=== PATIENT | female | born 1950 | race Caucasian/White ===

== ENCOUNTER → 2016-07-25 | Outpatient (CLI) | payer MEDICARE ==
--- NOTE | 2016-07-29 07:07 | MM ---
Reason for exam: screening (asymptomatic). Last mammogram was performed 1 year and 1 month ago. History: Patient is postmenopausal. Family history of breast cancer in sister at age 50. Benign US biopsy breast VAD LT of the left breast, March 10, 2014. Benign US breast needle core LT of the left breast, August 31, 2013. Benign left mammotome panel of the left breast, February 09, 2013. Took estrogen for 10 years. Physical Findings: A clinical breast exam by your physician is recommended on an annual basis and results should be correlated with mammographic findings. MG 3D Screening Mammo W/Cad Bilateral CC and MLO view(s) were taken. Prior study comparison: July 09, 2015, bilateral MG 3d screening mammo w/cad. September 11, 2014, left breast US breast LT. March 01, 2014, bilateral MG diagnostic mammo w CAD KAREN. November 11, 2011, mammogram, performed at [facility]. There are scattered fibroglandular densities. Previous mammotome biopsy within the right breast x two with associated focal asymmetry. Stable grouped calcifications medial posterior right breast. Focal asymmetry 1 o'clock in the left breast at a middle depth appears more defined. It incompletely disperses on tomosynthesis images. ASSESSMENT: Incomplete: need additional imaging evaluation, BI-RAD 0 RECOMMENDATION: Special view mammogram of the left breast. If lesion persists on supplemental views, image directed ultrasound is recommended. [facility] will attempt to contact patient to return for supplemental views and ultrasound if indicated. [facility]Andrew
== END | disposition home or self-care (01) ==
LOC: RADMAMWWP 10:08
PROVIDERS: ATTEND Surgery
DX: Z12.31 Encounter for screening mammogram for malignant neoplasm of breast (principal); R92.2 Inconclusive mammogram
CPT/HCPCS: 77063; G0202

== ENCOUNTER → 2016-08-06 | Outpatient (CLI) | payer MEDICARE ==
--- NOTE | 2016-08-06 11:32 | MM ---
Reason for exam: additional evaluation requested from abnormal screening. Last mammogram was performed less than 1 month ago. History: Patient is postmenopausal. Family history of breast cancer in sister at age 50. Benign US biopsy breast VAD LT of the left breast, March 10, 2014. Benign US breast needle core LT of the left breast, August 31, 2013. Benign left mammotome panel of the left breast, February 09, 2013. Took estrogen for 10 years. Physical Findings: Nurse Summary: 1cm nodule in the left breast at 10 o'clock (nurse mm). MG 3D Work Up W/Cad LT ML, spot compression CC, and spot compression MLO view(s) were taken of the left breast. Prior study comparison: July 25, 2016, bilateral MG 3d screening mammo w/cad. July 09, 2015, bilateral MG 3d screening mammo w/cad. The breast tissue is heterogeneously dense. This may lower the sensitivity of mammography. Finding #1: There is a 5 mm mass in the outer quadrant of the left breast. Finding #2: There are typically benign calcifications in the left breast. These results were verbally communicated with the patient and result sheet given to the patient on 08/06/16. ASSESSMENT: Incomplete: need additional imaging evaluation, BI-RAD 0 RECOMMENDATION: Ultrasound of the left breast.
--- NOTE | 2016-08-06 11:33 | USB ---
Reason for exam: additional evaluation requested from abnormal screening. History: Patient is postmenopausal. Family history of breast cancer in sister at age 50. Benign US biopsy breast VAD LT of the left breast, March 10, 2014. Benign US breast needle core LT of the left breast, August 31, 2013. Benign left mammotome panel of the left breast, February 09, 2013. Took estrogen for 10 years. Physical Findings: Nurse did not find any significant physical abnormalities on exam. US Breast Workup Limited LT Left breast ultrasound demonstrates a 0.5 x 0.4 x 0.4cm hypoechoic lesion at 4 o'clock and a 0.4 x 0.3 x 0.4cm hypoechoic lesion at 4 o'clock. Multiple nodes noted in axilla. These results were verbally communicated with the patient and result sheet given to the patient on 08/06/16. ASSESSMENT: Suspicious, BI-RAD 4 RECOMMENDATION: Ultrasound core biopsy of the left breast. Called with mammographic findings and has scheduled an appointment for the patient for 08/12/16 at 9:[address] Delaney. PRELIMINARY REPORT CALLED AND FAXED TO DR. DELANEY ON 08/06/16 AT 300/TMP.
== END | disposition home or self-care (01) ==
LOC: RADMAMWWP 08:57
PROVIDERS: ATTEND Surgery
DX: R92.8 Other abnormal and inconclusive findings on diagnostic imaging of breast (principal)
CPT/HCPCS: 76642; G0206; G0279

== ENCOUNTER → 2016-08-18 | Day surgery (SDC) | payer MEDICARE ==
[~2016-08-18] MED LIST: ALPRAZolam 0.25 MG TAB ONE; BACITRACIN OINT 1 EACH PACKET TOPICAL ONE; LIDOCAINE 1% INJ 10MG/ML (20 ML MDV) ONE
--- NOTE | 2016-08-18 08:33 | USB ---
EXAMINATION TYPE: US breast aspiration single LT, MG diagnostic mammo LT wo CAD , US biopsy breast VAD LT DATE OF EXAM: 08/18/2016 CLINICAL HISTORY: R92.8 abn mamm. TECHNIQUE: Ultrasound guided fine-needle aspiration and core biopsy of left breast with clip placement and follow-up two-view mammogram. COMPARISON: Diagnostic left breast mammogram and ultrasound workup August 06, 2016 and older studies. FINDINGS: The procedure of ultrasound guided fine-needle aspiration and/or core biopsy was explained to the patient. Benefits, alternatives, and risks were discussed. An informed consent was then obtained. The patient was placed in supine positioning for imaging and for the procedure. Preprocedure imaging redemonstrates 2 well-defined 3 to 4 mm hypoechoic anechoic lesions 4:00 position zone B see in the left breast which are believed to correlate to area of concern on prior ultrasound. The overlying skin was prepped and draped in usual sterile fashion. Lidocaine buffered with bicarbonate was used as anesthetic into the skin and subcutaneous tissue up to area of concern in the left breast. Under ultrasound guidance, one lesion is successfully aspirated with less than 1 cc of yellow-colored fluid utilizing 20- gauge spinal needle. Fluid is discarded due to limited volume and benign gross appearance. Second lesion is unsuccessful in aspiration. Under ultrasound guidance, a 12-gauge vacuum assisted biopsy gun device was used to obtain 2 core samples. Following this, a biopsy clip was left in lesion. The patient tolerated the procedure well without any immediate complication. The patient was kept in the radiology department for short stay after the procedure and then discharged home in stable condition. Postprocedure mammogram shows successful deployment of new clip inferior outer quadrant correlating with 4:00 position on ultrasound. IMPRESSION: Successful, uncomplicated ultrasound guided core biopsy of area of concern in the left breast, full pathology results to follow. Low index of suspicion noted at time of procedure. Pathology Results: Benign BREAST, LEFT, CORE BIOPSY: BENIGN FIBROADIPOSE TISSUE WITH FAT NECROSIS, CHRONIC INFLAMMATION AND FIBROSIS. BREAST ELEMENTS ARE NOT IDENTIFIED. Recommendation Follow up ultrasound of the left breast in 6 months. MTDD
== END ==
LOC: RADUSWWP 06:58
PROVIDERS: ATTEND Surgery
DX: N60.32 Fibrosclerosis of left breast (principal); N64.1 Fat necrosis of breast; R92.8 Other abnormal and inconclusive findings on diagnostic imaging of breast
CPT/HCPCS: 88305; 76942; 19000; 19083; G0206; J2001

== ENCOUNTER → 2017-08-31 | Outpatient (CLI) | payer MEDICARE ==
--- NOTE | 2017-08-31 14:56 | MM ---
Reason for exam: screening (asymptomatic). Last mammogram was performed 1 year ago. History: Patient is postmenopausal and history of other cancer. Family history of breast cancer in sister at age 50. US breast aspiration single LT of the left breast, August 18, 2016. Benign US biopsy breast VAD LT of the left breast, August 18, 2016. Benign US biopsy breast VAD LT of the left breast, March 10, 2014. Benign US breast needle core LT of the left breast, August 31, 2013. Benign left mammotome panel of the left breast, February 09, 2013. Took estrogen for 10 years. Physical Findings: A clinical breast exam by your physician is recommended on an annual basis and results should be correlated with mammographic findings. MG 3D Screening Mammo W/Cad Bilateral CC and MLO view(s) were taken. Prior study comparison: August 18, 2016, left breast MG diagnostic mammo LT wo CAD. August 06, 2016, left breast MG 3d work up w/cad LT. The breast tissue is heterogeneously dense. This may lower the sensitivity of mammography. Finding #1: Stable architectural distortion in the left breast. Finding #2: There are typically benign dystrophic, round, grouped/clustered and scattered calcifications in both breasts. Previous mammotome biopsy in the left breast x 3. There is no discrete abnormality. ASSESSMENT: Benign, BI-RAD 2 RECOMMENDATION: Routine screening mammogram of both breasts in 1 year.
== END | disposition home or self-care (01) ==
LOC: RADMAMWWP 11:05
PROVIDERS: ATTEND Family Medicine
DX: Z12.31 Encounter for screening mammogram for malignant neoplasm of breast (principal)
CPT/HCPCS: 77063; 77067

== ENCOUNTER → 2018-01-15 | Outpatient (CLI) | payer MEDICARE ==
--- NOTE | 2018-01-15 18:50 | CT ---
EXAMINATION TYPE: CT abdomen pelvis wo/w con DATE OF EXAM: 01/15/2018 HISTORY: Multiple UTI's. Pelvic pain. CT DLP: 1933.7mGycm Automated Exposure Control for Dose Reduction was Utilized. CONTRAST: CT scan of the abdomen and pelvis is performed without and with IV Contrast, patient injected with 10 0 mL of Isovue 300. COMPARISON: CTA chest dated 12/10/2012 FINDINGS: LUNG BASES: The left lung base there is a 1.4 cm pulmonary nodule. This is very similar in comparison to the exam of 12/10/2012 where this measured 1.2 cm. There is question to be internal macroscopic fa t and this could relate to a trauma as there are smooth and lobular borders. Bibasilar subsegmental a telectasis is noted. LIVER/GB: Hepatic parenchyma is diffusely hypoattenuated in comparison to that of the spleen, most co mmonly seen in hepatic steatosis. This finding limits evaluation for hepatic masses. No gross evidenc e of hepatic mass is seen. No intrahepatic biliary ductal dilatation. Gallbladder surgically absent. PANCREAS: No significant abnormality is seen. SPLEEN: No significant abnormality is seen. ADRENALS: No significant abnormality is seen. KIDNEYS: On the noncontrast images there is there are bilateral renal calculi. On the left there are 2 3 mm nonobstructing upper pole renal calculi and on the right there is one mid pole 3 mm nonobstruc ting calculus. On the nephrographic phase on image 37 in both kidneys there are 4 mm hypoattenuated lesions that are too small to accurately characterize. No suspicious renal mass is seen of either kidney. There is no evidence of hydronephrosis of either k idney. No uroepithelial thickening is seen. Automated no proximal ureteral stricture is identified. U rinary bladder is not opacified and incompletely evaluated, however there is a calculus within the an terior superior urinary bladder appearing to be within the wall or lying dependently against the wall . BOWEL: Multiple colonic diverticula some containing inspissated contrast and/or debris. No pericoloni c fat stranding is noted. Contrast is seen retained within the distal esophagus that could relate to gastroesophageal reflux or decreased propulsion of contrast. The cecum demonstrates slight wall thick ening on series 6 image 66. Moderate amount retained colonic stool is noted, slightly limiting evalua tion of the bowel. No dilated large or small bowel is seen duodenal diverticulum is incidentally note d near the head of the pancreas. This contains contrast. UTERUS/ADNEXA: Uterus appears surgically absent. LYMPH NODES: No greater than 1cm abdominal or pelvic lymph nodes are appreciated. OSSEOUS STRUCTURES: Minimal multilevel degenerative changes of the spine are seen OTHER: Abdominal aorta is of normal course and caliber with mild atherosclerosis. IMPRESSION: 1. Bilateral renal calculi without evidence of obstructive uropathy. 2. Punctate solitary urinary bladder calculus intimately associated with the urinary bladder wall leroy t may be sequela of repeated infections or may represent a recently passed renal calculus. 3. No evidence of suspicious renal mass or uroepithelial thickening. Too small to accurately characte rize bilateral renal lesions are of low suspicion. 4. Colonic diverticulosis without evidence of acute diverticulitis. 5. 1.4 cm left lower lobe pulmonary nodule suspected to represent a benign hamartoma demonstrating on ly 2 mm of interval growth since 2013, therefore highly likely benign.
== END | disposition home or self-care (01) ==
LOC: RADCTMAIN 13:52
PROVIDERS: ATTEND Urology
DX: N20.0 Calculus of kidney (principal); N21.0 Calculus in bladder; K57.30 Diverticulosis of large intestine without perforation or abscess without bleeding
CPT/HCPCS: 74178; Q9967

== ENCOUNTER → 2018-09-06 | Outpatient (CLI) | payer MEDICARE ==
--- NOTE | 2018-09-07 10:58 | MM ---
Reason for exam: screening (asymptomatic). Last mammogram was performed 1 year ago. History: Patient is postmenopausal and history of other cancer. Family history of breast cancer in sister at age 50. US breast aspiration single LT of the left breast, August 18, 2016. Benign US biopsy breast VAD LT of the left breast, August 18, 2016. Benign US biopsy breast VAD LT of the left breast, March 10, 2014. Benign US breast needle core LT of the left breast, August 31, 2013. Benign left mammotome panel of the left breast, February 09, 2013. Took estrogen for 10 years. Physical Findings: A clinical breast exam by your physician is recommended on an annual basis and results should be correlated with mammographic findings. MG 3D Screening Mammo W/Cad Bilateral CC and MLO view(s) were taken. Prior study comparison: August 31, 2017, bilateral MG 3d screening mammo w/cad. August 18, 2016, left breast MG diagnostic mammo LT wo CAD. The breast tissue is heterogeneously dense. This may lower the sensitivity of mammography. Stable scattered calcifications. No significant changes when compared with prior studies. ASSESSMENT: Benign, BI-RAD 2 RECOMMENDATION: Routine screening mammogram of both breasts in 1 year.
== END | disposition home or self-care (01) ==
LOC: RADMAMWWP 11:41
PROVIDERS: ATTEND Family Medicine
DX: Z12.31 Encounter for screening mammogram for malignant neoplasm of breast (principal)
CPT/HCPCS: 77063; 77067

== ENCOUNTER → 2019-07-01 | Outpatient (CLI) | payer MEDICARE ==
--- NOTE | 2019-07-04 10:05 | PE ---
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 TECHNIQUE: Following the intravenous administration of 10.20 mCi of F-18 FDG, whole body images are performed from the top of skull to the bottom of the feet. Images are reviewed on the computer in th e coronal, axial, and sagittal planes. Reconstructed rotating images are created on independent work station and reviewed on the computer. A noncontrast CT is performed in conjunction with the PET sca n. SCAN: Initial Scan FINDINGS: HEAD AND NECK: No areas of suspicious hypermetabolic uptake including scalp lesions or adenopathy. CHEST, MEDIASTINUM, AND HILAR REGION: No areas of suspicious hypermetabolic uptake. ABDOMEN AND PELVIS: No areas of suspicious hypermetabolic uptake. OSSEOUS STRUCTURES: No areas of suspicious hypermetabolic uptake. EXTREMITIES: No areas of suspicious hypermetabolic uptake. Other: Surgical changes medially left breast axial image 107 are present. Moderate coronary artery calcification is redemonstrated noted marker for coronary artery disease. St able 1.4 cm left basilar pulmonary nodule axial image 131 which is ametabolic noted not significantly changed from 2013 CT presumed benign. Liver remains low dense consistent with diffuse fatty infiltration. Cholecystectomy clips are again s een. Diverticula in the left and sigmoid colon. Uterus is surgically absent or markedly atrophic. A f ew scattered pelvic phleboliths. Calcifications lower bladder redemonstrated. Small bilateral renal c alculi redemonstrated. Metallic hardware from total right knee arthroplasty. IMPRESSION: No new suspicious hypermetabolic masses to suggest metastatic melanoma recurrence.
== END | disposition home or self-care (01) ==
LOC: RADPETMAIN 10:53
PROVIDERS: ATTEND Internal Medicine
DX: C43.39 Malignant melanoma of other parts of face (principal)
CPT/HCPCS: 78816; A9552

== ENCOUNTER → 2019-09-26 | Outpatient (CLI) | payer MEDICARE ==
--- NOTE | 2019-09-28 08:46 | MM ---
Reason for exam: screening (asymptomatic). Last mammogram was performed 1 year and 1 month ago. History: Patient is postmenopausal and has history of other cancer at age 67. Family history of breast cancer in sister at age 50. US breast aspiration single LT of the left breast, August 18, 2016. Benign US biopsy breast VAD LT of the left breast, August 18, 2016. Benign US biopsy breast VAD LT of the left breast, March 10, 2014. Benign US breast needle core LT of the left breast, August 31, 2013. Benign left mammotome panel of the left breast, February 09, 2013. Took estrogen for 10 years. Physical Findings: A clinical breast exam by your physician is recommended on an annual basis and results should be correlated with mammographic findings. MG 3D Screening Mammo W/Cad Bilateral CC and MLO view(s) were taken. Prior study comparison: September 06, 2018, bilateral MG 3d screening mammo w/cad. August 31, 2017, bilateral MG 3d screening mammo w/cad. The breast tissue is heterogeneously dense. This may lower the sensitivity of mammography. Asymmetric breast tissue in the right upper outer quadrant 6cm from nipple. This finding is changed when compared with previous exams. ASSESSMENT: Incomplete: need additional imaging evaluation, BI-RAD 0 RECOMMENDATION: Ultrasound of the right breast. [facility] will attempt to contact patient to return for ultrasound.
== END | disposition home or self-care (01) ==
LOC: RADMAMWWP 15:10
PROVIDERS: ATTEND Family Medicine
DX: Z12.31 Encounter for screening mammogram for malignant neoplasm of breast (principal)
CPT/HCPCS: 77063; 77067

== ENCOUNTER → 2019-11-25 | Outpatient (CLI) | payer MEDICARE ==
--- NOTE | 2019-11-28 07:28 | PE ---
EXAMINATION TYPE: PET CT fusion whole body DATE OF EXAM: 11/25/2019 COMPARISON: Whole body PET/CT July 01, 2019 and older CTs. HISTORY: Malignant melanoma progress study. Originally diagnosed July 28, 2017 in the forehead with recurrence same location March 14, 2019. TECHNIQUE: Following the intravenous administration of 11.635 mCi of F-18 FDG, whole body images are performed from the top of skull to the bottom of feet. Images are reviewed on the computer in the c oronal, axial, and sagittal planes. Reconstructed rotating images are created on independent worksta tion and reviewed on the computer. A noncontrast CT is performed in conjunction with the PET scan. SCAN: Subsequent Scan FINDINGS: HEAD AND NECK: No new areas of suspicious hypermetabolic uptake in particular no suspicious hypermet abolic soft tissue scalp lesions. CHEST, MEDIASTINUM, AND HILAR REGION: No new areas of suspicious hypermetabolic uptake. ABDOMEN AND PELVIS: Normal excretion redemonstrated. More prominent mild/moderate diffuse bowel uptak e on current study is nonspecific. No areas of abnormal new suspicious hypermetabolic uptake on curre nt study. OSSEOUS STRUCTURES: No new areas of suspicious hypermetabolic uptake. EXTREMITIES: No new areas of suspicious hypermetabolic uptake. OTHER CT: Surgical changes medially left breast axial image 110 are redemonstrated. Mild to moderate coronary artery calcification is redemonstrated which is noted marker for coronary a rtery disease. Stable 1.4 cm left basilar pulmonary nodule axial image 131 which remains ametabolic n oted not significantly changed from 2013 CT presumed benign. Liver remains low dense consistent with diffuse fatty infiltration. Cholecystectomy clips are again s een. Diverticula in the left and sigmoid colon. Uterus is surgically absent or markedly atrophic. A f ew scattered pelvic phleboliths. Calcifications inferior bladder redemonstrated. Small bilateral taylor l calculi redemonstrated. Metallic hardware from total right knee arthroplasty again seen. IMPRESSION: No new areas of suspicious hypermetabolic soft tissue masses to suggest residual or metas tatic melanoma.
== END | disposition home or self-care (01) ==
LOC: RADPETMAIN 08:15
PROVIDERS: ATTEND Internal Medicine
DX: C43.39 Malignant melanoma of other parts of face (principal); C77.0 Secondary and unspecified malignant neoplasm of lymph nodes of head, face and neck
CPT/HCPCS: 78816; A9552

== ENCOUNTER → 2020-05-28 | Outpatient (CLI) | payer MEDICARE ==
--- NOTE | 2020-05-29 07:54 | MM ---
Reason for exam: follow-up at short interval from prior study. Last mammogram was performed 8 months ago. History: Patient is postmenopausal and has history of other cancer at age 67. Family history of breast cancer in sister at age 50. US breast aspiration single LT of the left breast, August 18, 2016. Benign US biopsy breast VAD LT of the left breast, August 18, 2016. Benign US biopsy breast VAD LT of the left breast, March 10, 2014. Benign US breast needle core LT of the left breast, August 31, 2013. Benign left mammotome panel of the left breast, February 09, 2013. Took estrogen for 10 years. Physical Findings: Nurse did not find any significant physical abnormalities on exam. MG 3D Diag Mammo W/Cad RT CC and MLO view(s) were taken of the right breast. Prior study comparison: September 26, 2019, bilateral MG 3d screening mammo w/cad. September 06, 2018, bilateral MG 3d screening mammo w/cad. The breast tissue is heterogeneously dense. This may lower the sensitivity of mammography. Upper outer quadrant focal asymmetry stable to less defined. An additional short follow up can be performed. These results were verbally communicated with the patient and result sheet given to the patient on 05/28/20. ASSESSMENT: Probably benign, BI-RAD 3 RECOMMENDATION: Follow-up diagnostic mammogram of both breasts in 4 months. Back on schedule for September 2020.
== END ==
LOC: RADMAMWWP 14:04
PROVIDERS: ATTEND Family Medicine
DX: N64.89 Other specified disorders of breast (principal); R92.2 Inconclusive mammogram; Z80.3 Family history of malignant neoplasm of breast; Z78.0 Asymptomatic menopausal state
CPT/HCPCS: 77065; G0279; 77061

== ENCOUNTER → 2020-07-06 | Outpatient (CLI) | payer MEDICARE ==
--- NOTE | 2020-07-09 08:32 | PE ---
EXAMINATION TYPE: PET CT fusion skull to thigh DATE OF EXAM: 07/06/2020 COMPARISON: Prior PET/CT November 25, 2019 HISTORY: Malignant melanoma diagnosed forehead with surgical excision September 03, 2017, local recurrence in the left with surgical excision April 05, 2020. TECHNIQUE: Following the intravenous administration of 13.41 mCi of F-18 FDG, whole body images are performed from the skull base to the bottom of feet. Images are reviewed on the computer in the jorge nal, axial, and sagittal planes. Reconstructed rotating images are created on independent workstatio n and reviewed on the computer. A localization and attenuation correction CT is performed in conjun ction with the PET scan. Blood glucose level = 15. SCAN: Initial Scan FINDINGS: SKULL BASE AND NECK: Entire head was not included in field of view on today's study. No suspicious h ypermetabolic uptake identified to suggest neoplasm. CHEST, MEDIASTINUM, AND HILAR REGION: No suspicious hypermetabolic uptake identified to suggest neopl asm. ABDOMEN AND PELVIS: Nonspecific bowel uptake. Normal excretion. No suspicious hypermetabolic uptake. OSSEOUS STRUCTURES: No suspicious hypermetabolic uptake. Lower extremities: No suspicious hypermetabolic uptake. OTHER CT: Surgical changes medially left breast axial image 97 are redemonstrated. Moderate coronary artery calcification is redemonstrated Stable 1.4 cm left basilar pulmonary nodule axial image 113 which remains ametabolic noted not significantly changed from prior studies. Liver remains low dense consistent with diffuse fatty infiltration. Cholecystectomy clips are redemon strated . Diverticula in the left and sigmoid colon. Uterus is surgically absent . A few scattered pe lvic phleboliths redemonstrated. Calcifications inferior bladder redemonstrated. Small bilateral intr aluminal calculi redemonstrated. Metallic hardware from total right knee arthroplasty again seen. IMPRESSION: No new areas of hypermetabolic uptake to suggest new metastatic or persistent recurrent a ctive neoplasm.
== END | disposition home or self-care (01) ==
LOC: RADPETMAIN 12:35
PROVIDERS: ATTEND Internal Medicine
DX: Z85.820 Personal history of malignant melanoma of skin (principal); C43.39 Malignant melanoma of other parts of face; C77.0 Secondary and unspecified malignant neoplasm of lymph nodes of head, face and neck
CPT/HCPCS: 78815; A9552

== ENCOUNTER → 2020-09-21 | Outpatient (CLI) | payer MEDICARE | END | disposition home or self-care (01) ==

== ENCOUNTER → 2021-07-22 | Outpatient (CLI) | payer MEDICARE ==
--- NOTE | 2021-07-22 14:07 | MM ---
Reason for exam: additional evaluation requested from prior study. Last mammogram was performed 10 months ago. History: Patient is postmenopausal and has history of other cancer at age 67. Family history of breast cancer in sister at age 51 and breast cancer in daughter. US breast aspiration single LT of the left breast, August 18, 2016. Benign US biopsy breast VAD LT of the left breast, August 18, 2016. Benign US biopsy breast VAD LT of the left breast, March 10, 2014. Benign US breast needle core LT of the left breast, August 31, 2013. Benign left mammotome panel of the left breast, February 09, 2013. Took estrogen for 10 years. Physical Findings: A clinical breast exam by your physician is recommended on an annual basis and results should be correlated with mammographic findings. MG 3D Diag Mammo W/Cad KAREN Bilateral CC and MLO view(s) were taken. Prior study comparison: May 28, 2020, right breast MG 3d diag mammo w/cad RT. The breast tissue is heterogeneously dense. This may lower the sensitivity of mammography. There are benign appearing round, dystrophic calcifications. Previous mammotome biopsy in the left breast x 3. There is chronic nodularity in the left breast. There is no discrete abnormality. Results were given to the patient verbally at the time of the exam. ASSESSMENT: Benign, BI-RAD 2 RECOMMENDATION: Routine screening mammogram of both breasts in 1 year.
== END | disposition home or self-care (01) ==
LOC: RADMAMWWP 13:31
PROVIDERS: ATTEND Family Medicine
DX: R92.1 Mammographic calcification found on diagnostic imaging of breast (principal); Z78.0 Asymptomatic menopausal state; Z80.3 Family history of malignant neoplasm of breast
CPT/HCPCS: 77066; G0279; 77062

== ENCOUNTER → 2022-07-24 | Outpatient (CLI) | payer MEDICARE, OTHER ==
--- NOTE | 2022-07-24 17:54 | BD ---
EXAMINATION TYPE: Axial Bone Density DATE OF EXAM: 07/24/2022 CLINICAL HISTORY: 72 years old Female. ICD-10 CODE: S28066 SCREENING FOR OSTEO Height: 62 .2 in Weight: 180 lbs FRAX RISK QUESTIONS: Secondary Osteoporosis: 3. Menopause before 45: partial hysterectomy age 28 RISK FACTORS HISTORY OF: History of Wrist Fracture: rt wrist age 10 Family History of Osteoporosis: yes mother and father Active: yes Diet low in dairy products/other sources of calcium: yes Postmenopausal woman: partial hysterectomy age 28 Take estrogen and/or progesterone medications: not now How long: took for 10 years MEDICATIONS: Thyroid Medications: yes Which medication: Levothyroxine How Lon+ years Additional Medications: calcium, vit d, diabetes meds, baby aspirin, omeprazole, multi vit, EXAM MEASUREMENTS: Bone mineral densitometry was performed using the [employer] System. Bone mineral density as measured about the Lumbar spine is: ----- L1-L4(G/cm2): 1.211 T Score Values are as follows: ----- L1: 0.1 ----- L2: 0.2 ----- L3: 0.6 ----- L4: 0.0 ----- L1-L4: 0.3 Z Score Values are as follows: ----- L1: 1.3 ----- L2: 1.4 ----- L3: 1.8 ----- L4: 1.2 ----- L1-L4: 1.4 Bone mineral density baseline Bone mineral density about the R hip (g/cm2): 0.898 Bone mineral density about the L hip (g/cm2): 0.891 T Score values are as follows: -----R Neck: -1.1 -----L Neck: -1.5 -----R Total: -0.9 -----L Total: -0.9 Z Score values are as follows: -----R Neck: -0.5 -----L Neck: 0.0 -----R Total: 0.4 -----L Total: 0.4 Bone mineral density baseline FRAX%s: The graph provided illustrates a 10.5% chance for a major osteoporotic fx and a 2.0% chance f or the hips probability for fx in 10 years time. IMPRESSION: Osteopenia (T Score between -2.5 and -1). There is slightly increased risk of fracture and the patient may be considered for treatment. Re-Screen 2-5 years. NOTE: T-SCORE=SD OF THE YOUNG ADULT MEAN.
--- NOTE | 2022-07-25 19:37 | MM ---
Reason for Exam: Screening (asymptomatic). Last screening mammogram was performed 12 month(s) ago. Patient History: Menarche at age 10. First Full-Term at age 17. Hysterectomy at age 28. Postmenopausal. Other cancer, age 67. Patient used Estrogen for 10 years. 08/18/2016, Cyst Aspiration on the Left side. 08/18/2016, Benign Core Biopsy on the left side. 03/10/2014, Benign Core Biopsy on the left side. 08/31/2013, Benign Core Biopsy on the left side. 02/09/2013, Benign Core Biopsy on the left side. Sister had breast cancer, age 51. Daughter had breast cancer. Risk Values: Jodi 5 year model risk: 12.3%. NCI Lifetime model risk: 25.8%. Prior Study Comparison: 05/28/2020 Right Diagnostic Mammogram, [facility]. 09/21/2020 Bilateral Diagnostic Mammogram, [facility]. 07/22/2021 Bilateral Diagnostic Mammogram, [facility]. Tissue Density: There are scattered fibroglandular densities. Findings: Analyzed By CAD. Benign bilateral round and coarse calcifications are present. Chronic nodularity medial left breast, previously biopsied. 3 microclips in the left breast from prior biopsies. No significant change from prior exams. There is no suspicious group of microcalcifications or new suspicious mass in either breast. Overall Assessment: Benign, BI-RAD 2 Management: Screening Mammogram of both breasts in 1 year. Patient with high risk scores, see note below. Patient should continue monthly self-breast exams. A clinical breast exam by your physician is recommended on an annual basis. This exam should not preclude additional follow-up of suspicious palpable abnormalities. Note on Jodi scores and lifetime risk: 1. A Jodi score greater than 3% is considered moderate risk. If this is the case, consider specialist referral to assess eligibility for a risk reducing agent. 2. If overall lifetime risk for the development of breast cancer is 20% or higher, the patient may qualify for future screening with alternating mammogram and breast MRI. Electronically signed and approved by: Juan Dennis M.D. Radiologist
== END | disposition home or self-care (01) ==
LOC: RADMAMWWP 14:13
PROVIDERS: ATTEND Family Medicine
DX: Z12.31 Encounter for screening mammogram for malignant neoplasm of breast (principal); Z13.820 Encounter for screening for osteoporosis; M85.89 Other specified disorders of bone density and structure, multiple sites; Z78.0 Asymptomatic menopausal state; Z80.3 Family history of malignant neoplasm of breast
CPT/HCPCS: 77063; 77067; 77080

== ENCOUNTER → 2023-07-31 | Outpatient (CLI) | payer MEDICARE ==
--- NOTE | 2023-08-03 13:26 | MM ---
Reason for Exam: Screening (asymptomatic). Last screening mammogram was performed 12 month(s) ago. Patient History: Menarche at age 10. First Full-Term at age 17. Hysterectomy at age 28. Postmenopausal. Patient has history of breast feeding. Other cancer, age 67. Patient used Estrogen for 10 years. 08/18/2016, Cyst Aspiration on the Left side. 08/18/2016, Benign Core Biopsy on the left side. 03/10/2014, Benign Core Biopsy on the left side. 08/31/2013, Benign Core Biopsy on the left side. 02/09/2013, Benign Core Biopsy on the left side. Sister had breast cancer, age 51. Daughter had breast cancer. Risk Values: Jodi 5 year model risk: 12.3%. NCI Lifetime model risk: 24.4%. Prior Study Comparison: 08/18/2016 Left Diagnostic Mammogram, [facility]. 08/31/2017 Bilateral Screening Mammogram, [facility]. 09/06/2018 Bilateral Screening Mammogram, [facility]. 09/26/2019 Bilateral Screening Mammogram, [facility]. 05/28/2020 Right Diagnostic Mammogram, [facility]. 09/21/2020 Bilateral Diagnostic Mammogram, [facility]. 07/22/2021 Bilateral Diagnostic Mammogram, [facility]. 07/24/2022 Bilateral MG 3D screening mammo w/cad, [facility]. Tissue Density: There are scattered areas of fibroglandular density. Findings: Analyzed By CAD. Left breast biopsy clip. Right breast: There is no suspicious group of microcalcifications or new suspicious mass. Benign-appearing calcifications right breast. Left breast: There is no suspicious group of microcalcifications or new suspicious mass. Benign-appearing calcifications left breast. Overall Assessment: Benign, BI-RAD 2 Management: Screening Mammogram of both breasts in [address] [facility] will attempt to contact patient to return for supplemental views and ultrasound if indicated. Patient should continue monthly self-breast exams. A clinical breast exam by your physician is recommended on an annual basis. This exam should not preclude additional follow-up of suspicious palpable abnormalities. Note on Jodi scores and lifetime risk: 1. A Jodi score greater than 3% is considered moderate risk. If this is the case, consider specialist referral to assess eligibility for a risk reducing agent. 2. If overall lifetime risk for the development of breast cancer is 20% or higher, the patient may qualify for future screening with alternating mammogram and breast MRI. Electronically signed and approved by: Shalom Ayala DO
== END | disposition home or self-care (01) ==
LOC: RADMAMWWP 09:53
PROVIDERS: ATTEND Family Medicine
DX: Z12.31 Encounter for screening mammogram for malignant neoplasm of breast (principal); Z80.3 Family history of malignant neoplasm of breast; Z78.0 Asymptomatic menopausal state
CPT/HCPCS: 77063; 77067

== ENCOUNTER → 2024-09-26 | Outpatient (CLI) | payer MEDICARE ==
--- NOTE | 2024-09-26 10:02 | MM ---
Reason for Exam: Screening (asymptomatic). Last mammogram was performed 1 year(s) and 2 month(s) ago. Patient History: Menarche at age 10. First Full-Term at age 17. Hysterectomy at age 28. Postmenopausal. Patient has history of breast feeding. Other cancer, age 67. Patient used Estrogen for 10 years. 08/18/2016, Cyst Aspiration on the Left side. 08/18/2016, Benign Core Biopsy on the left side. 03/10/2014, Benign Core Biopsy on the left side. 08/31/2013, Benign Core Biopsy on the left side. 02/09/2013, Benign Core Biopsy on the left side. Sister had breast cancer, age 51. Daughter had breast cancer. Risk Values: Jodi 5 year model risk: 12.2%. NCI Lifetime model risk: 23.1%. Prior Study Comparison: 07/22/2021 Bilateral Diagnostic Mammogram, [facility]. 07/24/2022 Bilateral MG 3D screening mammo w/cad, [facility]. 07/31/2023 Bilateral MG 3D screening mammo w/cad, [facility]. Tissue Density: The breasts are heterogeneously dense, which may obscure small masses. Findings: Analyzed By CAD. There is no suspicious group of microcalcifications or new suspicious mass in either breast. Overall Assessment: Benign, BI-RAD 2 Management: Screening Mammogram of both breasts in 1 year. . Patient should continue monthly self-breast exams. A clinical breast exam by your physician is recommended on an annual basis. This exam should not preclude additional follow-up of suspicious palpable abnormalities. Note on Jodi scores and lifetime risk: 1. A Jodi score greater than 3% is considered moderate risk. If this is the case, consider specialist referral to assess eligibility for a risk reducing agent. 2. If overall lifetime risk for the development of breast cancer is 20% or higher, the patient may qualify for future screening with alternating mammogram and breast MRI. [facility], , 09/26/2024 9:59 AM. Electronically signed and approved by: Shan Toro M.D. Radiologis
== END | disposition home or self-care (01) ==
LOC: RADMAMWWP 09:40
PROVIDERS: ATTEND Family Medicine
DX: Z12.31 Encounter for screening mammogram for malignant neoplasm of breast (principal); R92.333 Mammographic heterogeneous density, bilateral breasts; Z80.3 Family history of malignant neoplasm of breast; Z78.0 Asymptomatic menopausal state
CPT/HCPCS: 77063; 77067